=== PATIENT | male | born 1995 | race Caucasian/White ===

== ENCOUNTER 2016-12-24 12:49 | Emergency (ER) | payer BC ==
[~2016-12-24] VITALS: Ht 175.3 cm; Wt 75.7 kg
[2016-12-24 13:37] LABS: HEMATOCRIT 44.9 % (38.0-50.0); MCH 31.5 PG (29.0-34.0); MCHC 35.2 G/DL (30.0-36.0); MCV 89.4 FL (86-99); MEAN PLAT.VOLUME 9.5 uM^3 (9.0-12.4); PLATELET COUNT 214 K/uL (156-360); RBC DIS.WIDTH-CV 11.7 % (11.8-14.6); RBC DIS.WIDTH-SD 37.8 % (39-53); RED BLOOD COUNT 5.02 M/uL (4.00-5.50); WHITE BLOOD COUNT 4.9 K/uL (4.1-10.2)
[2016-12-24 13:45] LABS: CHLORIDE 107 mEq/L (99-109); POTASSIUM 3.9 mEq/L (3.7-5.4); SODIUM 141 mEq/L (136-147)
[2016-12-24 13:47] LABS: GLUCOSE 94 mg/dL (70-99)
[2016-12-24 13:48] LABS: ANION GAP 10 MEQ/L (2-14)
[2016-12-24 13:49] LABS: ADD MEDTOX COMMENT Y; AMPHETAMINE NEGATIVE (500 ng/mL); BARBITURATES NEGATIVE (200 ng/mL); BENZODIAZEPINES NEGATIVE (150 ng/mL); COCAINE NEGATIVE (150 ng/mL); INTERNAL CONTROLS VALID? YES; METHADONE NEGATIVE (200 ng/mL); METHAMPHETAMINE NEGATIVE (500 ng/mL); OPIATES (MORPHINE) NEGATIVE (100 ng/mL); OXYCODONE NEGATIVE (100 ng/mL); PHENCYCLIDINE NEGATIVE (25 ng/mL); PROPOXYPHENE NEGATIVE (300 ng/mL); THC CANNABINOIDS PRESUMPTIVE POSITIVE (50 ng/mL); TRICYCLIC ANTIDEPRESSANTS NEGATIVE (300 ng/mL)
[2016-12-24 13:50] LABS: SERUM ETHYL ALCOHOL < 10 mg/dL
[2016-12-24 13:51] LABS: GFR ESTIMATE (CALCULATED) > 59 mL/min/
[2016-12-24 13:52] LABS: UREA NITROGEN (BUN) 13 mg/dL (9-23)
[2016-12-24 14:50] VITALS: BP 123/83
== END 2016-12-24 14:51 | disposition home or self-care (01) ==
LOC: EME → EDBD 12:49 → EDSEX 12:49 → EXP 12:49
DX: F32.9 Major depressive disorder, single episode, unspecified (principal); F43.21 Adjustment disorder with depressed mood
CPT/HCPCS: 80048; 84999; 85027; 90837; 99281; 99285; G0480